=== PATIENT | female | born 1980 | race Caucasian/White ===

== ENCOUNTER 2018-03-19 19:56 | Inpatient (IN) | payer OTHER ==
[2018-03-19 20:05] VITALS: BMI 26.4
[2018-03-19 20:29] LABS: BILIRUBIN,URINE NEGATIVE (NEGATIVE); BLOOD/HEMOGLOBIN,URINE NEGATIVE (NEGATIVE); GLUCOSE, URINE NEGATIVE (NEGATIVE); KETONES,URINE NEGATIVE (NEGATIVE); LEUKOCYTE ESTERASE ,URINE NEGATIVE (NEGATIVE); NITRITES,URINE NEGATIVE (NEGATIVE); PH,URINE 6.5 (5.0 - 8.0); PROTEIN,URINE NEGATIVE (NEGATIVE); UROBILINOGEN,URINE NORMAL (NORMAL)
[2018-03-19 20:37] LABS: AMNISURE ROM TEST THERE IS A RUPTURE (NO RUPTURE); APPEARANCE,URINE CLEAR (CLEAR); COLOR,URINE YELLOW (YELLOW)
[2018-03-19] MEDS ORDERED: NUBAIN INJ 200 MG VIAL MULTIDOSE IVP PRN (20:42)
[2018-03-19] MEDS ORDERED: DILAUDID INJ IVP PRN (20:42)
[2018-03-19] MEDS ORDERED: D5LR 1L W PITOCIN 10 UNITS/L 10 UNITS/1,000 ML BAG IV PRN (20:42)
[2018-03-19] MEDS ORDERED: PHENERGAN INJ 25 MG IV PRN (20:42)
[2018-03-19] MEDS ORDERED: REGLAN INJ 10 MG VIAL IVP PRN (20:42)
[2018-03-19] MEDS ORDERED: LR 1000 ML IV 1,000 ML IV ONE (20:48)
[2018-03-19] MEDS ORDERED: NAROPIN EPIDURAL 0.2% + FENTANYL 90MCG 60 ML EPI ONE (20:49)
[2018-03-19] MEDS ORDERED: FENTANYL INJ 100 mcg ONE (20:49)
[2018-03-19] MEDS ORDERED: D5 1/2 NS 1L W PITOCIN 20 UNITS/L 20 UNITS/1,000 ML BAG IV ONE (20:49)
[2018-03-19] MEDS ORDERED: D5 1/2 NS 1000 ML 1,000 ML IV SCH (21:00)
[2018-03-19 21:12] LABS: BASOPHILS # (AUTO) 0.1 X10^3/uL (0.0-0.1); BASOPHILS % (AUTO) 0.8 % (0.2-1.0); EOSINOPHILS # (AUTO) 0.1 x10^3/uL (0.0-0.2); EOSINOPHILS % (AUTO) 1.3 % (0.9-2.9); HEMATOCRIT 32.1 % (36.0-47.0); LYMPHOCYTES # (AUTO) 2.7 X10^3/uL (1.3-2.9); LYMPHOCYTES % (AUTO) 23.8 % (21.0-51.0); MEAN CORPUSCULAR HEMOGLOBIN 28.4 pg (27.0-34.0); MEAN CORPUSCULAR HGB CONC 34.4 g/dL (33.0-35.0); MEAN CORPUSCULAR VOLUME 82.6 fL (80.0-100.0); MEAN PLATELET VOLUME 9.8 fL (7.4-11.0); MONOCYTES # (AUTO) 1.1 x10^3/uL (0.3-0.8); MONOCYTES % (AUTO) 9.7 % (0.0-13.0); NEUTROPHILS # (AUTO) 7.2 x10^3/uL (2.2-4.8); NEUTROPHILS % (AUTO) 64.4 % (42.0-75.0); PLATELET COUNT 165 X10^3/uL (150.0-450.0); RED BLOOD COUNT 3.88 X10^6/uL (3.5-5.4); RED CELL DISTRIBUTION WIDTH 21.2 % (11.6-16.5); WHITE BLOOD COUNT 11.2 X10^3/uL (3.6-10.0)
[2018-03-19 21:22] LABS: BLOOD UREA NITROGEN 8 mg/dL (7-18); CALCIUM 8.4 mg/dL (8.5-10.1); CARBON DIOXIDE 23.5 mmol/L (21-32); CHLORIDE 104 mmol/L (98-107); CREATININE 0.62 mg/dL (0.55-1.02); SODIUM 138 mmol/L (136-145); eGFR BLACK RACES > 60 (>60); eGFR NON BLACK RACES > 60 (>60)
[2018-03-19 21:40] LABS: ANISOCYTOSIS 1+; PLATELET MORPHOLOGY COMMENT NORMAL (NORMAL)
[2018-03-20] MEDS ORDERED: FENTANYL INJ 100 mcg EPI ONE (00:24)
[2018-03-20] MEDS ORDERED: LR 1000 ML IV 1,000 ML IV ONE (00:24)
[2018-03-20] MEDS ORDERED: NAROPIN EPIDURAL 0.2% 60 ML with FENTANYL INJ 100 mcg 90 MCG IVP SCH ×2 (01:00)
[2018-03-20] MEDS: PITOCIN IVP ONE ×2 (02:49→03:47)
[2018-03-20] MEDS ORDERED: MOTRIN TAB 800 MG PO PRN (03:00)
[2018-03-20] MEDS ORDERED: D5 1/2 NS 1000 ML 1,000 ML with PITOCIN 20 UNITS IV SCH ×2 (03:00)
[2018-03-20] MEDS ORDERED: PHENERGAN INJ 25 MG IV PRN (03:00)
[2018-03-20] MEDS ORDERED: AMBIEN PO PRN (03:38)
[2018-03-20] MEDS ORDERED: ADACEL TDaP IM ONE (03:38)
[2018-03-20] MEDS ORDERED: MILK OF MAGNESIA PO PRN (03:38)
[2018-03-20] MEDS ORDERED: DERMOPLAST SPRAY TOP PRN (03:38)
[2018-03-20 06:43] LABS: HEMATOCRIT 32.8 % (36.0-47.0); HEMOGLOBIN 11.2 g/dL (12.0-16.0)
[2018-03-20] MEDS: PRENATAL PLUS PO SCH (08:29)
[2018-03-20] MEDS: ZANTAC PO SCH ×2 (08:29→20:52)
[2018-03-20] MEDS: D5 1/2 NS 1000 ML 1,000 ML with PITOCIN 20 UNITS IV SCH ×4 (11:07→23:48)
[2018-03-20] MEDS: MOTRIN TAB 800 MG PO PRN ×2 (13:33→21:25)
[2018-03-21] MEDS: D5 1/2 NS 1000 ML 1,000 ML with PITOCIN 20 UNITS IV SCH ×2 (05:48)
[2018-03-21] MEDS: PRENATAL PLUS PO SCH (08:34)
[2018-03-21] MEDS: ZANTAC PO SCH (08:34)
[2018-03-21 13:04] VITALS: BP 98/63
== END 2018-03-21 12:50 | disposition home or self-care (01) | DRG 775 ==
LOC: ER 20:12 → LD 20:41 → ICU 03-20 03:34 → MED/SURG 03-20 18:03
PROVIDERS: ADMIT Obstetrics & Gynecology Obstetrics; ATTEND Specialist
PROC: 10E0XZZ Delivery of Products of Conception, External Approach (ICD-10-PCS; principal; 2018-03-19)
PROC: 3E0234Z Introduction of Serum, Toxoid and Vaccine into Muscle, Percutaneous Approach (ICD-10-PCS; 2018-03-20)
DX: O80 Encounter for full-term uncomplicated delivery (principal); Z37.0 Single live birth; Z23 Encounter for immunization; Z3A.39 39 weeks gestation of pregnancy
CPT/HCPCS: 09167; 36415; 59409; 80048; 81003; 84112; 85014; 85018; 85025; 86592; 86850; 86900; 86901; 99284; A4216; A4222; S0197; J2590; J3010; J7042; J7120